=== PATIENT | female | born 2000 | race Two or more races ===

== ENCOUNTER 2022-12-19 18:32 | Emergency (ER) | payer OTHER ==
[2022-12-19 18:41] VITALS: BP 122/71; PULSE 91; RESP 18; TEMP 97.6; BMI 21.6
== END 2022-12-19 19:46 | disposition home or self-care (01) ==
LOC: JERFT 18:32
DX: F12.129 Cannabis abuse with intoxication, unspecified (principal); R05.9 Cough, unspecified; R42 Dizziness and giddiness
CPT/HCPCS: 99281-25

== ENCOUNTER 2023-09-10 09:45 | Emergency (ER) | payer OTHER ==
[2023-09-10 09:51] VITALS: BP 108/60; PULSE 64; RESP 20; TEMP 98.1; BMI 25.0
== END 2023-09-10 10:56 | disposition home or self-care (01) ==
LOC: JERFT 09:45
DX: H66.91 Otitis media, unspecified, right ear (principal); H92.01 Otalgia, right ear
CPT/HCPCS: 99283-25

== ENCOUNTER 2024-01-14 04:30 | Inpatient (IN) | payer OTHER ==
[2024-01-14] MEDS: LACTATED RINGERS SOLUTION 1,000 ML/1,000 ML INFUS.BAG IV SCH (08:30)
[2024-01-14 08:51] VITALS: BMI 34.2
[2024-01-14 10:29] LABS: INR 0.93 (0.83-1.09); PROTHROMBIN TIME (PATIENT) 10.5 SEC (9.7-13.0)
[2024-01-14 10:30] LABS: HEMATOCRIT 37.5 % (32.4-45.2); HEMOGLOBIN 12.5 GM/dL (10.7-15.3); MCH 26.8 pg (25.7-33.7); MCHC 33.4 g/dl (32.0-36.0); MEAN CELL VOLUME 80.2 fl (80-96); MEAN PLT VOLUME 9.2 fl (7.5-11.1); PLATELET COUNT 180 10^3/uL (134-434); RBC 4.67 M/mm3 (3.60-5.2); WHITE BLOOD COUNT 9.1 K/mm3 (4.0-10.0)
[2024-01-14 10:44] LABS: CALCIUM 9.1 mg/dL (8.5-10.1)
[2024-01-14 10:45] LABS: BLOOD UREA NITROGEN 5.5 mg/dL (7-18)
[2024-01-14] MEDS ORDERED: OXYTOCIN 30 UNITS in 0.9% NS 30 UNIT/500 ML INFUS.BAG IVPB ONE (10:47)
[2024-01-14] MEDS ORDERED: AMPICILLIN SODIUM 2 GM VIAL ONE (10:47)
[2024-01-14 10:48] LABS: CREATININE 0.5 mg/dL (0.55-1.3)
[2024-01-14] MEDS: OXYTOCIN 30 UNITS in 0.9% NS 30 UNIT/500 ML INFUS.BAG IVPB SCH (11:00)
[2024-01-14] MEDS: AMPICILLIN - 2 GM in SODIUM CHLORIDE 100 ML IVPB ONE (11:00)
[2024-01-14] MEDS ORDERED: PROMETHAZINE HCL 25 MG/1 ML VIAL ONE (11:21)
[2024-01-14] MEDS ORDERED: BUTORPHANOL TARTRATE 2 MG/ML VIAL ONE (11:21)
[2024-01-14 11:24] LABS: ANISOCYTOSIS 0; MACROCYTOSIS 0
[2024-01-14] MEDS: PROMETHAZINE HCL 25 MG/1 ML VIAL IVPB ONE (11:30)
[2024-01-14] MEDS: BUTORPHANOL TARTRATE 2 MG/ML VIAL IVPB ONE (11:30)
[2024-01-14] MEDS ORDERED: AMPICILLIN - 1 GM in SODIUM CHLORIDE 100 ML IVPB SCH (12:15)
[2024-01-14] MEDS ORDERED: AMPICILLIN SODIUM 1 GM VIAL ONE ×2 (14:48→18:48)
[2024-01-14] MEDS: AMPICILLIN - 1 GM in SODIUM CHLORIDE 100 ML IVPB SCH (14:59)
[2024-01-14] MEDS ORDERED: NALOXONE HCL 0.4 MG/ML VIAL IVPUSH PRN (15:30)
[2024-01-14] MEDS ORDERED: FENTANYL/BUPIVACAINE/NS/PF - PCEA - 50 ML DISP.SYRIN EP ONE ×2 (15:33→19:48)
[2024-01-14] MEDS ORDERED: FENTANYL CITRATE/PF 50 MCG/ML VIAL ONE (15:34)
[2024-01-14] MEDS: FENTANYL/BUPIVACAINE/NS/PF - PCEA - 50 ML DISP.SYRIN EP SCH (15:55)
[2024-01-14] MEDS ORDERED: OXYTOCIN 20 UNITS in 0.9% NS 20 UNIT/1,000 ML INFUS.BAG IV ONE (19:09)
[2024-01-14] MEDS ORDERED: LIDOCAINE HCL 1% PRESERVATIVE FREE - 30ML VIAL ONE (19:09)
[2024-01-14] MEDS: OXYTOCIN 20 UNITS in 0.9% NS 20 UNIT/1,000 ML INFUS.BAG IV SCH (20:50)
[2024-01-14] MEDS: IBUPROFEN 800 MG/8 ML IJ IVPB ONE (21:05)
[2024-01-14] MEDS ORDERED: IBUPROFEN 800 MG/8 ML IJ IVPB ONE (21:05)
[2024-01-14] MEDS ORDERED: WITCH HAZEL 50% (TUCKS) 40 PAD/JAR PAD TP PRN (21:23)
[2024-01-14] MEDS ORDERED: BENZOCAINE 28 GM HEMORRHOIDAL OINTMENT TP PRN (21:23)
[2024-01-14] MEDS ORDERED: BENZOCAINE 20% 57 GM BOTTLE TP PRN (21:23)
[2024-01-14] MEDS ORDERED: BISACODYL 10 MG SUPP.RECT RC PRN (21:23)
[2024-01-14] MEDS: METHYLERGONOVINE MALEATE 0.2 MG/1 ML AMP IM PRN (22:27)
[2024-01-14 23:21] VITALS: RESP 18
[2024-01-15] MEDS: ACETAMINOPHEN 325 MG TABLET (FP) PO PRN (00:57)
[2024-01-15] MEDS: IBUPROFEN 600 MG TABLET (FP) PO PRN (06:01)
[2024-01-15 07:12] LABS: BASO % 0.5 % (0-2.0); EOS % 0.4 % (0-4.5); HEMATOCRIT 38.6 % (32.4-45.2); HEMOGLOBIN 12.6 GM/dL (10.7-15.3); LYMPH % 15.4 % (8-40); MCH 26.7 pg (25.7-33.7); MCHC 32.8 g/dl (32.0-36.0); MEAN CELL VOLUME 81.4 fl (80-96); MONO % 6.2 % (3.8-10.2); NEUT % 77.5 % (42.8-82.8); PLATELET COUNT 194 10^3/uL (134-434); RBC 4.74 M/mm3 (3.60-5.2); RDW 18.1 % (11.6-15.6); WHITE BLOOD COUNT 14.7 K/mm3 (4.0-10.0)
[2024-01-15] MEDS: PRENATAL VITAMINS W/ FOLIC ACID TABLET (FP) PO SCH (10:40)
[2024-01-15] MEDS: SENNOSIDES/DOCUSATE COMBO (SENNA PLUS) TABLET (UD) PO PRN (20:40)
[2024-01-15 22:04] VITALS: PULSE 74
[2024-01-16 09:30] VITALS: BP 99/66; TEMP 98.3
== END 2024-01-16 14:20 | disposition home or self-care (01) | DRG 560 ==
LOC: JDEL 04:30 → JLDR 08:00 → J3W 01-15 00:20
PROVIDERS: ADMIT Obstetrics & Gynecology; ATTEND Obstetrics & Gynecology
PROC: 10E0XZZ Delivery of Products of Conception, External Approach (ICD-10-PCS; principal; 2024-01-14)
PROC: 0HQ9XZZ Repair Perineum Skin, External Approach (ICD-10-PCS; 2024-01-14)
PROC: 0W8NXZZ Division of Female Perineum, External Approach (ICD-10-PCS; 2024-01-14)
DX: O70.0 First degree perineal laceration during delivery (principal); O99.213 Obesity complicating pregnancy, third trimester; Z3A.39 39 weeks gestation of pregnancy; Z37.0 Single live birth
CPT/HCPCS: 36415; 59409; 80048; 85025; 85610; 86780; 86850; 86900; 86901

== ENCOUNTER 2024-02-23 15:10 | Emergency (ER) | payer OTHER ==
[2024-02-23 15:16] VITALS: BP 102/67; PULSE 69; RESP 20; TEMP 98.5; BMI 27.4
[2024-02-23 16:53] LABS: EPI CELLS >36 /uL (0-25.1); HYALINE CASTS 2 /uL (0-3.1); PH,URINE 5.5 (5.0-8.0); URINE APPEARANCE CLEAR; URINE BACTERIA 106 /uL (0-1359); URINE BILIRUBIN NEGATIVE (NEGATIVE); URINE COLOR YELLOW; URINE GLUCOSE (UA) NEGATIVE (NEGATIVE); URINE KETONE TRACE (NEGATIVE); URINE LEUK ESTERASE 1+ (NEGATIVE); URINE NITRITE NEGATIVE (NEGATIVE); URINE PROTEIN TRACE (NEGATIVE); URINE RBC 18 /uL (0-23.9); URINE UROBILINOGEN 0.2 mg/dL (0.2-1.0); URINE WBC 46 /uL (0-25.8)
== END 2024-02-23 17:35 | disposition home or self-care (01) ==
LOC: JERFT 15:10
DX: L73.2 Hidradenitis suppurativa (principal); N39.0 Urinary tract infection, site not specified
CPT/HCPCS: 81003; 99283-25

== ENCOUNTER 2025-02-10 06:24 | Emergency (ER) | payer OTHER ==
[2025-02-10 06:29] VITALS: TEMP 98; BMI 25.8
[2025-02-10] MEDS ORDERED: ACETAMINOPHEN INJECTION 100 ML ONE (07:34)
[2025-02-10] MEDS ORDERED: METOCLOPRAMIDE HCL INJECTION 10 MG/2 ML VIAL ONE (07:34)
[2025-02-10] MEDS: SODIUM CHLORIDE 0.9% 500 ML INFUS.BAG IV ONE (07:58)
[2025-02-10] MEDS: ACETAMINOPHEN 1000 MG/100 ML BAG IVPB ONE (07:58)
[2025-02-10] MEDS: METOCLOPRAMIDE HCL INJECTION 10 MG/2 ML VIAL IVPUSH ONE (08:00)
[2025-02-10 10:03] VITALS: BP 120/70; PULSE 78; RESP 16
== END 2025-02-10 10:04 | disposition home or self-care (01) ==
LOC: JER 06:24
PROC: 3E033NZ Introduction of Analgesics, Hypnotics, Sedatives into Peripheral Vein, Percutaneous Approach (ICD-10-PCS; principal; 2025-02-10)
PROC: 3E033GC Introduction of Other Therapeutic Substance into Peripheral Vein, Percutaneous Approach (ICD-10-PCS; 2025-02-10)
DX: R51.9 Headache, unspecified (principal); H53.143 Visual discomfort, bilateral
CPT/HCPCS: 99284-25

== ENCOUNTER 2025-02-10 15:22 | Emergency (ER) | payer OTHER ==
[2025-02-10 15:29] VITALS: RESP 19; TEMP 98.4; BMI 25.8
[2025-02-10] MEDS: SODIUM CHLORIDE 0.9% 500 ML INFUS.BAG IV ONE (16:31)
[2025-02-10 16:54] LABS: ABSOLUTE IMMATURE GRANULOCYTES 0.03 x10^3/uL (0.0-0.031); BASOPHILS # 0.05 x10^3/uL (0.01-0.08); EOSINOPHIL % 2.2 % (0.7-5.8); EOSINOPHILS # 0.14 x10^3/uL (0.04-0.36); MCHC 31.8 g/dl (32.2-35.5); MEAN CELL VOLUME 86.0 fl (79.4-94.8); MEAN PLT VOLUME 12.4 fl (9.4-12.3); MONOCYTE # 0.57 x10^3/uL (0.24-0.86); MONOCYTE % 9.0 % (4.7-12.5); RDW 13.7 % (12.1-16.5)
[2025-02-10 16:59] LABS: HCG,QUALITATIVE URINE Negative
[2025-02-10 17:01] LABS: URINE APPEARANCE CLEAR; URINE BILIRUBIN NEGATIVE (NEGATIVE); URINE COLOR YELLOW; URINE GLUCOSE (UA) NEGATIVE (NEGATIVE); URINE KETONE NEGATIVE (NEGATIVE)
[2025-02-10 17:02] LABS: URINE LEUK ESTERASE TRACE (NEGATIVE); URINE NITRITE NEGATIVE (NEGATIVE); URINE PROTEIN NEGATIVE (NEGATIVE); URINE UROBILINOGEN 0.2 mg/dL (0.2-1.0)
[2025-02-10] MEDS ORDERED: KETOROLAC TROMETHAMINE 30 MG/1 ML VIAL ONE (17:58)
[2025-02-10 18:03] LABS: GLUCOSE,RANDOM 105.0 mg/dL (74-106)
[2025-02-10] MEDS: KETOROLAC TROMETHAMINE 30 MG/1 ML VIAL IVPB ONE (18:03)
[2025-02-10 18:04] LABS: TOT PROT 6.8 g/dl (6.4-8.2)
[2025-02-10 18:05] LABS: CO2 24.0 mmol/L (21-32)
[2025-02-10 18:06] LABS: ALK PHOS 51.0 U/L (40-150)
[2025-02-10 18:09] LABS: CREATININE 0.63 mg/dL (0.55-1.3); SGOT/AST 19.0 U/L (5-34); SGPT/ALT 13.0 U/L (0-55)
[2025-02-10 19:33] VITALS: BP 98/62; PULSE 87
== END 2025-02-10 19:25 | disposition home or self-care (01) ==
LOC: JER 15:22
PROC: 3E0333Z Introduction of Anti-inflammatory into Peripheral Vein, Percutaneous Approach (ICD-10-PCS; principal; 2025-02-10)
DX: R51.9 Headache, unspecified (principal); H53.8 Other visual disturbances; R11.0 Nausea
CPT/HCPCS: 36415; 80053; 81003; 83735; 84703; 85025; 99284-25